=== PATIENT | female | born 1980 | race Caucasian/White ===

== ENCOUNTER 2017-07-25 16:48 | Emergency (ER) | payer SELFPAY ==
[~2017-07-25] VITALS: Ht 175.3 cm; Wt 63.6 kg
[2017-07-25 17:45] VITALS: Ht 175.3 cm; Wt 63.6 kg
[2017-07-25 18:42] LABS: APPEARANCE CLEAR (CLEAR); BILIRUBIN NEGATIVE (NEGATIVE); COLOR YELLOW (YELLOW); GLUCOSE NEGATIVE (NEGATIVE); HCG URINE NEGATIVE (NEGATIVE); KETONE NEGATIVE (NEGATIVE); NITRITE NEGATIVE (NEGATIVE); PROTEIN NEGATIVE (NEGATIVE); SPECIFIC GRAVITY 1.015 (1.005-1.020); UROBILINOGEN NORMAL (NORMAL)
[2017-07-25 19:06] LABS: BASOPHILS 0.6 % (0-2); HEMATOCRIT 46.2 % (36.0-48.0); HEMOGLOBIN 16.3 g/dL (12-16); IMMATURE GRANULOCYTES 0.2 % (0-5); LYMPHOCYTES 23.1 % (15-50); MCH 31.5 pg (26.0-34.0); MCHC 35.3 g/dL (31.0-37.0); MCV 89.2 fL (80.0-100.0); MEAN PLATELET VOLUME 10.5 fL (7.4-10.4); NEUTROPHILS 65.1 % (40-80); PLATELET COUNT 341 10x3/uL (130-400); RBC 5.18 10x6/uL (4.00-5.40); RDW 13.8 % (11.5-14.5)
[2017-07-25 19:20] LABS: ALBUMIN 4.2 g/dL (3.4-5.0); ALKALINE PHOSPHATASE 63 U/L (46-116); ALT (SGPT) 18 U/L (10-68); AMYLASE - SERUM 47 U/L (25-115); BILIRUBIN - TOTAL 0.64 mg/dL (0.2-1.3); CALCIUM 9.2 mg/dL (8.5-10.1); CARBON DIOXIDE 28.9 mmol/L (21.0-32.0); CHLORIDE - SERUM 104 mmol/L (98-107); CREATININE - SERUM 0.9 mg/dL (0.6-1.3); LIPASE 126 U/L (73-393); POTASSIUM - SERUM 3.9 mmol/L (3.5-5.1); PROTEIN - SERUM 7.2 g/dL (6.4-8.2); SODIUM 142 mmol/L (136-145); UREA NITROGEN 11 mg/dL (7-18); eGFR NON AFRICAN AMERICAN 75 mL/min (90-120)
[2017-07-25 19:26] LABS: CALC OSMOLALITY 278 mosm/kg (275-300)
[2017-07-25 19:29] LABS: GLUCOSE 52 mg/dL (74-106)
[2017-07-25] MEDS ORDERED: LEVAQUIN500 MG PO (22:48)
[2017-07-25] MEDS ORDERED: FLAGYL500 MG PO (22:48)
[2017-07-25] MEDS ORDERED: ZOFRAN8 MG PO (22:49)
[2017-07-26 04:37] VITALS: BP 110/68
== END 2017-07-25 23:14 | disposition home or self-care (01) ==
LOC: D.ER 16:48
PROVIDERS: Family Medicine
DX: R10.31 Right lower quadrant pain (principal); K52.9 Noninfective gastroenteritis and colitis, unspecified; R11.2 Nausea with vomiting, unspecified; R11.0 Nausea; R19.7 Diarrhea, unspecified; F17.200 Nicotine dependence, unspecified, uncomplicated

== ENCOUNTER 2017-09-04 02:59 | Emergency (ER) | payer SELFPAY ==
[~2017-09-04] VITALS: Ht 175.3 cm; Wt 63.6 kg
[~2017-09-04 02:59] MED LIST: FLAGYL500 MG PO; LEVAQUIN500 MG PO; ZOFRAN8 MG PO
[2017-09-04 03:04] VITALS: Ht 175.3 cm; Wt 63.6 kg
[2017-09-04] MEDS ORDERED: DOXYCYCLINE HY100 M2 PO (03:28)
[2017-09-04] MEDS ORDERED: NORCO 7.5/325 T1 TA1 PO (03:28)
[2017-09-04 03:29] LABS: BASOPHILS 0.3 % (0-2); EOSINOPHILS 0.5 % (0-7); HEMATOCRIT 36.1 % (36.0-48.0); HEMOGLOBIN 13.2 g/dL (12-16); IMMATURE GRANULOCYTES 0.3 % (0-5); LYMPHOCYTES 10.1 % (15-50); MCH 31.2 pg (26.0-34.0); MCHC 36.6 g/dL (31.0-37.0); MCV 85.3 fL (80.0-100.0); MEAN PLATELET VOLUME 9.7 fL (7.4-10.4); MONOCYTES 8.7 % (2-11); NEUTROPHILS 80.1 % (40-80); PLATELET COUNT 289 10x3/uL (130-400); RBC 4.23 10x6/uL (4.00-5.40); RDW 13.4 % (11.5-14.5); WBC 15.7 10x3/uL (4.8-10.8)
[2017-09-04 03:48] LABS: ALBUMIN 3.4 g/dL (3.4-5.0); ALKALINE PHOSPHATASE 58 U/L (46-116); ALT (SGPT) 32 U/L (10-68); BILIRUBIN - TOTAL 1.76 mg/dL (0.2-1.3); CALCIUM 8.7 mg/dL (8.5-10.1); CARBON DIOXIDE 31.9 mmol/L (21.0-32.0); CHLORIDE - SERUM 95 mmol/L (98-107); CREATININE - SERUM 0.9 mg/dL (0.6-1.3); PROTEIN - SERUM 6.8 g/dL (6.4-8.2); SODIUM 134 mmol/L (136-145); UREA NITROGEN 6 mg/dL (7-18); eGFR NON AFRICAN AMERICAN 75 mL/min (90-120)
[2017-09-04 04:04] LABS: CALC OSMOLALITY 266 mosm/kg (275-300); GLUCOSE 108 mg/dL (74-106); POTASSIUM - SERUM 2.8 mmol/L (3.5-5.1)
[2017-09-04 04:16] VITALS: BP 111/63
== END 2017-09-04 04:17 | disposition home or self-care (01) ==
LOC: D.ER 02:59
PROVIDERS: Emergency Medicine
DX: L03.113 Cellulitis of right upper limb (principal); F15.10 Other stimulant abuse, uncomplicated; F17.200 Nicotine dependence, unspecified, uncomplicated

== ENCOUNTER 2017-09-08 22:27 | Emergency (ER) | payer SELFPAY ==
[~2017-09-08] VITALS: Ht 175.3 cm; Wt 61.4 kg
[~2017-09-08 22:27] MED LIST changes: +DOXYCYCLINE HY100 M2 PO; +NORCO 7.5/325 T1 TA1 PO
[2017-09-08 22:43] VITALS: Ht 175.3 cm; Wt 61.4 kg
[2017-09-08] MEDS ORDERED: ACETAMINOPHEN500 M1 PO (22:46)
[2017-09-08] MEDS ORDERED: DOXYCYCLINE HY100 M2 PO (22:46)
[2017-09-09] MEDS ORDERED: CLEOCIN HCL300 MG PO (02:26)
[2017-09-09] MEDS ORDERED: LINEZOLID600 MG PO (02:26)
[2017-09-09] MEDS ORDERED: NORCO 7.5/325 T1 TA1 PO (02:27)
[2017-09-09 02:47] VITALS: BP 105/58
== END 2017-09-09 02:39 | disposition home or self-care (01) ==
LOC: D.ER 22:27
DX: M79.601 Pain in right arm (principal); F17.200 Nicotine dependence, unspecified, uncomplicated

== ENCOUNTER 2017-09-11 19:28 | Emergency (ER) | payer SELFPAY ==
[~2017-09-11] VITALS: Ht 175.3 cm; Wt 61.4 kg
[~2017-09-11 19:28] MED LIST changes: +ACETAMINOPHEN500 M1 PO; +CLEOCIN HCL300 MG PO; +LINEZOLID600 MG PO
[2017-09-11 19:42] VITALS: Ht 175.3 cm; Wt 61.4 kg
[2017-09-11] MEDS ORDERED: ULTRAM50 MG PO (21:14)
[2017-09-11 21:44] VITALS: BP 122/63
== END 2017-09-11 21:28 | disposition home or self-care (01) ==
LOC: D.ER 19:28
DX: L02.413 Cutaneous abscess of right upper limb (principal); F17.200 Nicotine dependence, unspecified, uncomplicated

== ENCOUNTER 2017-10-01 11:54 | Emergency (ER) | payer SELFPAY ==
[~2017-10-01] VITALS: Ht 175.3 cm; Wt 65.9 kg
[~2017-10-01 11:54] MED LIST changes: +ULTRAM50 MG PO
[2017-10-01 11:56] VITALS: Ht 175.3 cm; Wt 65.9 kg
[2017-10-01 12:37] LABS: BASOPHILS 0.6 % (0-2); EOSINOPHILS 2.9 % (0-7); HEMATOCRIT 41.6 % (36.0-48.0); HEMOGLOBIN 14.7 g/dL (12-16); IMMATURE GRANULOCYTES 0.6 % (0-5); LYMPHOCYTES 27.6 % (15-50); MCH 31.8 pg (26.0-34.0); MCHC 35.3 g/dL (31.0-37.0); MONOCYTES 8.1 % (2-11); NEUTROPHILS 60.2 % (40-80); RBC 4.62 10x6/uL (4.00-5.40); RDW 14.9 % (11.5-14.5); WBC 4.8 10x3/uL (4.8-10.8)
[2017-10-01 12:42] LABS: PLATELET COUNT 223 10x3/uL (130-400)
[2017-10-01 12:46] LABS: ALBUMIN 3.6 g/dL (3.4-5.0); ALKALINE PHOSPHATASE 77 U/L (46-116); ALT (SGPT) 18 U/L (10-68); BILIRUBIN - TOTAL 0.47 mg/dL (0.2-1.3); CALC OSMOLALITY 279 mosm/kg (275-300); CARBON DIOXIDE 27.5 mmol/L (21.0-32.0); CHLORIDE - SERUM 106 mmol/L (98-107); CREATININE - SERUM 0.8 mg/dL (0.6-1.3); GLUCOSE 86 mg/dL (74-106); POTASSIUM - SERUM 3.2 mmol/L (3.5-5.1); PROTEIN - SERUM 6.9 g/dL (6.4-8.2); SODIUM 142 mmol/L (136-145); UREA NITROGEN 6 mg/dL (7-18); eGFR NON AFRICAN AMERICAN 86 mL/min (90-120)
[2017-10-01 12:56] LABS: CKMB 0.2 U/L (0.0-3.6); CREATINE KINASE 35 UL (21-215); LIPASE 176 U/L (73-393); TROPONIN-I < 0.017 ng/mL (0.000-0.060)
[2017-10-01 12:59] LABS: HCG SERUM NEGATIVE (NEGATIVE)
[2017-10-01 13:12] LABS: APPEARANCE HAZY (CLEAR); BILIRUBIN NEGATIVE (NEGATIVE); COLOR DK YELLOW (YELLOW); GLUCOSE NEGATIVE (NEGATIVE); KETONE NEGATIVE (NEGATIVE); NITRITE POSITIVE (NEGATIVE); PH 5.5 (5.0-6.0); PROTEIN NEGATIVE (NEGATIVE); UROBILINOGEN NORMAL (NORMAL)
[2017-10-01 13:14] LABS: UDS - AMPHET NEGATIVE QUAL (NEGATIVE); UDS - BARB NEGATIVE QUAL (NEGATIVE); UDS - BENZO POSITIVE QUAL (NEGATIVE); UDS - COCAINE NEGATIVE QUAL (NEGATIVE); UDS - OPIATE NEGATIVE QUAL (NEGATIVE); UDS - PCP NEGATIVE QUAL (NEGATIVE); UDS - THC POSITIVE QUAL (NEGATIVE)
[2017-10-01 13:15] LABS: BACTERIA MANY /hpf (NONE SEEN); EPITHELIAL CELLS 0-5 /hpf (0-5); MUCUS >1+ /lpf (NONE SEEN); RED CELLS - URINE 0-5 /hpf (0-5); WHITE CELLS - URINE 0-5 /hpf (0-5)
[2017-10-01] MEDS ORDERED: MACROBID100 MG PO (13:34)
[2017-10-01 14:14] VITALS: BP 115/82
[2017-10-01] MEDS ORDERED: CLONAZEPAM1 MG/TAB PO (22:29)
== END 2017-10-01 14:15 | disposition home or self-care (01) ==
LOC: D.ER 11:54
PROVIDERS: Family Medicine
DX: F41.9 Anxiety disorder, unspecified (principal); F10.129 Alcohol abuse with intoxication, unspecified; E87.6 Hypokalemia; N39.0 Urinary tract infection, site not specified; R07.9 Chest pain, unspecified; F17.200 Nicotine dependence, unspecified, uncomplicated

== ENCOUNTER 2017-10-01 20:16 | Emergency (ER) | payer SELFPAY ==
[~2017-10-01] VITALS: Ht 175.3 cm; Wt 65.9 kg
[~2017-10-01 20:16] MED LIST changes: +MACROBID100 MG PO
[2017-10-01 20:36] VITALS: Ht 175.3 cm; Wt 65.9 kg
[2017-10-01] MEDS ORDERED: CLONAZEPAM1 MG/TAB PO (22:29)
[2017-10-01 22:53] VITALS: BP 134/86
== END 2017-10-01 22:40 | disposition home or self-care (01) ==
LOC: D.ER 20:16
DX: F10.239 Alcohol dependence with withdrawal, unspecified (principal); F17.200 Nicotine dependence, unspecified, uncomplicated

== ENCOUNTER 2017-12-19 17:15 | Emergency (ER) | payer SELFPAY ==
[~2017-12-19] VITALS: Ht 175.3 cm; Wt 68.2 kg
[~2017-12-19 17:15] MED LIST changes: +CLONAZEPAM1 MG/TAB PO
[2017-12-19 17:28] VITALS: Ht 175.3 cm; Wt 68.2 kg
[2017-12-19 18:38] LABS: BASOPHILS 0.2 % (0-2); EOSINOPHILS 1.1 % (0-7); HEMATOCRIT 40.4 % (36.0-48.0); HEMOGLOBIN 14.2 g/dL (12-16); IMMATURE GRANULOCYTES 0.2 % (0-5); LYMPHOCYTES 22.8 % (15-50); MCH 31.1 pg (26.0-34.0); MCHC 35.1 g/dL (31.0-37.0); MCV 88.4 fL (80.0-100.0); MONOCYTES 8.3 % (2-11); NEUTROPHILS 67.4 % (40-80); PLATELET COUNT 242 10x3/uL (130-400); RBC 4.57 10x6/uL (4.00-5.40); RDW 13.9 % (11.5-14.5); WBC 10.5 10x3/uL (4.8-10.8)
[2017-12-19 18:55] LABS: ALBUMIN 4.1 g/dL (3.4-5.0); ALKALINE PHOSPHATASE 46 U/L (46-116); ALT (SGPT) 15 U/L (10-68); BILIRUBIN - TOTAL 0.46 mg/dL (0.2-1.3); CALC OSMOLALITY 278 mosm/kg (275-300); CALCIUM 8.5 mg/dL (8.5-10.1); CARBON DIOXIDE 27.1 mmol/L (21.0-32.0); CHLORIDE - SERUM 105 mmol/L (98-107); CREATININE - SERUM 0.8 mg/dL (0.6-1.3); GLUCOSE 73 mg/dL (74-106); POTASSIUM - SERUM 3.5 mmol/L (3.5-5.1); PROTEIN - SERUM 7.1 g/dL (6.4-8.2); SODIUM 141 mmol/L (136-145); UREA NITROGEN 11 mg/dL (7-18); eGFR NON AFRICAN AMERICAN 86 mL/min (90-120)
[2017-12-19] MEDS ORDERED: TYLENOL W/CODEI1 TAB PO (19:16)
[2017-12-19] MEDS ORDERED: VOLTAREN75 MG PO (19:16)
[2017-12-19] MEDS ORDERED: VIBRAMYCIN 100100 MG PO (19:16)
[2017-12-19 20:31] VITALS: BP 128/74
== END 2017-12-19 20:32 | disposition home or self-care (01) ==
LOC: D.ER 17:15
PROVIDERS: Family Medicine
DX: L03.211 Cellulitis of face (principal); F17.200 Nicotine dependence, unspecified, uncomplicated

== ENCOUNTER 2017-12-20 09:17 | Emergency (ER) | payer SELFPAY ==
[~2017-12-20] VITALS: Ht 175.3 cm; Wt 68.2 kg
[~2017-12-20 09:17] MED LIST changes: +TYLENOL W/CODEI1 TAB PO; +VIBRAMYCIN 100100 MG PO; +VOLTAREN75 MG PO
[2017-12-20 09:20] VITALS: Ht 175.3 cm; Wt 68.2 kg
[2017-12-20 10:50] VITALS: BP 131/80
== END 2017-12-20 10:54 | disposition home or self-care (01) ==
LOC: D.ER 09:17
DX: K02.9 Dental caries, unspecified (principal); K04.7 Periapical abscess without sinus; F17.200 Nicotine dependence, unspecified, uncomplicated